=== PATIENT | male | born 1970 | race Caucasian/White ===

== ENCOUNTER 2016-10-10 09:01 | Emergency (ER) | payer OTHER ==
[~2016-10-10] VITALS: Ht 167.6 cm; Wt 60.0 kg
[~2016-10-10 09:01] MED LIST: CYCL5TAB PO
[2016-10-10 09:08] VITALS: BP 191/109; PULSE 86; RESP 17; TEMP 98.4; O2SAT 97
[2016-10-10] MEDS ORDERED: methylPREDNISolone SOD SUCC 125 MG/2 ML VIAL IVP ONE (09:45)
[2016-10-10] MEDS ORDERED: SODIUM CHLORIDE 0.9% FLUSH 5 ML FLUSH IVF PRN (09:45)
--- NOTE | 2016-10-10 09:49 | PD ---
HPI . Cough and cold for the last 3 weeks Chief Complaint: Cold / Flu Symptoms Time Seen by Provider: 09:36 Travel History International Travel<30 days: No Contact w/Intl Traveler<30days: No Traveled to known affect area: No History of Present Illness HPI Patient presents a with a chief complaint of cough and cold symptoms for the last 3 weeks. He reports subjective fevers and chills. He has cough. He has vomiting and diarrhea. He has headache. He reports phlegm production. He has shortness of breath, myalgias, weakness and poor appetite. He reports taking several glxo-vaz-udgpsbi medications including NyQuil, DayQuil, Robitussin, Mucinex, aspirin, Tylenol, Advil and Aleve without relief. PFSH Past Medical History Diminished Hearing: No Past Surgical History Body Medical Devices: LOWER JAW SURGERY, METAL USED TO REPAIR THE LOWER JAW Oral Surgery: Yes (JAW SURGERY) Social History Alcohol Use: Yes Tobacco Use: Yes Allergies-Medications (Allergen,Severity, Reaction): Coded Allergies: Naprosyn (Verified Allergy, Intermediate, ITCHING, 10/10/16) Bumble Bee (Verified Allergy, Mild, 10/10/16) Penicillin (Verified Allergy, Mild, RASH/SWELLING, 10/10/16) TOLD THAT A CHILD. Uncoded Allergies: PICKLES (Allergy, Mild, 03/11/06) Reported Meds & Prescriptions Reported Meds & Active Scripts Active Promethazine-Codeine Liq 6.25-10 Mg/5 Ml Syrp 10 Ml PO Q6H PRN Guaifenesin ER 12 HR (Guaifenesin) 1,200 Mg Lance 1,200 Mg PO BID PRN Ibuprofen 800 Mg Tab 800 Mg PO Q8H PRN Ventolin Hfa 18 GM Inh (Albuterol Sulfate) 90 Mcg/Act Aer 2 Puff INH Q4-6H PRN Prednisone (48) 10 mg tab Dose Pack (Prednisone) 10 Mg Dspk 10 Mg PO DIRECTED Reported Flexeril (Cyclobenzaprine HCl) 5 Mg Tab 5 Mg PO Q8HPRN Review of Systems Except as stated in HPI: all other systems reviewed are Neg General / Constitutional: Positive: Fever, Chills HENT: Positive: Headaches, Sore Throat, Rhinorrhea, Congestion Cardiovascular: Positive: Chest Pain or Discomfort Respiratory: Positive: Cough, Shortness of Breath Gastrointestinal: Positive: Nausea, Vomiting, Diarrhea, Abdominal Pain Genitourinary: No: Urgency, Frequency, Dysuria Musculoskeletal: Positive: Myalgias, Arthralgias, Weakness Neurologic: Positive: Weakness Physical Exam Narrative GENERAL: Healthy-appearing young man who does have a persistent cough. SKIN: Warm and dry. HEAD: Atraumatic. Normocephalic. EYES: Pupils equal and round. ENT: No nasal bleeding or discharge. Mucous membranes pink and moist. Oropharynx has no erythema. No tonsillar enlargement or exudate. No edema. NECK: Trachea midline. Neck is supple with no cervical lymphadenopathy. CARDIOVASCULAR: Regular rate and rhythm. Heart sounds are normal. RESPIRATORY: No accessory muscle use. Lungs are clear with good air movement throughout. Diffuse chest wall tenderness. GASTROINTESTINAL: Abdomen soft, non-tender, nondistended. MUSCULOSKELETAL: No obvious deformities. No edema. NEUROLOGICAL: Awake and alert. No obvious cranial nerve deficits. Motor grossly within normal limits. Normal speech. PSYCHIATRIC: Appropriate mood and affect; insight and judgment normal. Data Data Last Documented VS Vital Signs Date Time Temp Pulse Resp B/P Pulse Ox O2 Delivery O2 Flow Rate FiO2 10/10/16 10:15 60 18 163/98 97 Room Air 10/10/16 09:08 98.4 Orders Complete Blood Count With Diff (10/10/16 09:43) Basic Metabolic Panel (Bmp) (10/10/16 09:43) B-Type Natriuretic Peptide (10/10/16 09:43) Ckmb (Isoenzyme) Profile (10/10/16 09:43) Troponin I (10/10/16 09:43) Influenzae A/B Antigen (10/10/16 09:43) Blood Culture (10/10/16 09:43) Iv Access Insert/Monitor (10/10/16 09:43) Electrocardiogram (10/10/16 09:43) Ecg Monitoring (10/10/16 09:43) Oximetry (10/10/16 09:43) Chest, Single Ap (10/10/16 09:43) Sodium Chloride 0.9% Flush (Ns Flush) (10/10/16 09:45) Methylprednisolone So Succ Inj (Solumedr (10/10/16 09:45) Albuterol-Ipratropium Neb (Duoneb Neb) (10/10/16 09:45) CKMB (10/10/16 10:00) CKMB% (10/10/16 10:00) Labs Laboratory Tests Test 10/10/16 10:00 White Blood Count 12.4 TH/MM3 Red Blood Count 5.08 MIL/MM3 Hemoglobin 16.9 GM/DL Hematocrit 49.4 % Mean Corpuscular Volume 97.3 FL Mean Corpuscular Hemoglobin 33.4 PG Mean Corpuscular Hemoglobin 34.3 % Concent Red Cell Distribution Width 14.2 % Platelet Count 239 TH/MM3 Mean Platelet Volume 8.0 FL Neutrophils (%) (Auto) 68.4 % Lymphocytes (%) (Auto) 23.4 % Monocytes (%) (Auto) 6.9 % Eosinophils (%) (Auto) 0.8 % Basophils (%) (Auto) 0.5 % Neutrophils # (Auto) 8.5 TH/MM3 Lymphocytes # (Auto) 2.9 TH/MM3 Monocytes # (Auto) 0.9 TH/MM3 Eosinophils # (Auto) 0.1 TH/MM3 Basophils # (Auto) 0.1 TH/MM3 CBC Comment DIFF FINAL Differential Comment Sodium Level 138 MEQ/L Potassium Level 3.8 MEQ/L Chloride Level 106 MEQ/L Carbon Dioxide Level 23.2 MEQ/L Anion Gap 9 MEQ/L Blood Urea Nitrogen 8 MG/DL Creatinine 0.76 MG/DL Estimat Glomerular Filtration 110 ML/MIN Rate Random Glucose 90 MG/DL Calcium Level 8.2 MG/DL Total Creatine Kinase 103 U/L Creatine Kinase MB 0.7 NG/ML Troponin I LESS THAN 0.02 NG/ML B-Type Natriuretic Peptide 38 PG/ML MDM Medical Decision Making Medical Screen Exam Complete: Yes Emergency Medical Condition: Yes Medical Record Reviewed: Yes (the patient has been seen here on numerous previous occasions with various injuries and illnesses. However, he has no chronic medical problems) Interpretation(s) EKG shows a normal sinus rhythm with no acute ischemic changes. This is a normal EKG. He has no old EKGs for comparison. Differential Diagnosis Differential diagnosis of dyspnea includes but is not limited to congestive heart failure, pneumonia, wheezing, pneumothorax, pulmonary embolism Narrative Course Patient presents for evaluation and treatment of a 3 week history of cough and cold symptoms. I suspect viral bronchitis. Flu screen is negative. CBC & BMP Diagram 10/10/16 10:00 The chest x-ray to my interpretation is negative for infiltrate. Cardiac enzymes are negative. BNP is 38. His symptoms are most consistent with viral or allergic bronchitis. Last Impressions Chest X-Ray 10/10/16 0943 Signed Impressions: Service Date/Time: Monday, October 10, 2016 09:41 - CONCLUSION: No acute disease. Inder Mitchell MD FACR Diagnosis Primary Impression: Bronchitis Patient Instructions: Acute Bronchitis (ED), General Instructions Med/Other Pt SpecificInfo: Prescription(s) given Scripts Promethazine-Codeine Liq 6.25-10 Mg/5 Ml Syrp10 Ml PO Q6H PRN (cough) #180 ML Ref 0 Prov:Elizabeth Mejia MD 10/10/16 Guaifenesin ER 12 HR 1,200 Mg Taber1,200 Mg PO BID PRN (chest congestion) #30 TAB Ref 0 Prov:Elizabeth Mejia MD 10/10/16 Ibuprofen 800 Mg [id number] Mg PO Q8H PRN (body aches) #30 TAB Ref 0 Prov:Elizabeth Mejia MD 10/10/16 Albuterol 18 GM Inh (Ventolin Hfa 18 GM Inh)90 Mcg/Act Aer2 Puff INH Q4-6H PRN ( SHORTNESS OF BREATH) #1 INHALER Ref 0 Prov:Elizabeth Mejia MD 10/10/16 Prednisone (48) 10 mg tab Dose Pack 10 Mg Dspk10 Mg PO DIRECTED #1 DSPK Ref 0 Prov:Elizabeth Mejia MD 10/10/16 Disposition: 01 DISCHARGE HOME Condition: Stable Elizabeth Mejia MD Oct 10, 2016 09:48
[2016-10-10 10:15] VITALS: BP 163/98; PULSE 60; RESP 18; O2SAT 97
[2016-10-10 10:24] LABS: AUTOMATED NEUTROPHIL # 8.5 TH/MM3 (1.8-7.7); BASOPHIL # 0.1 TH/MM3 (0-0.2); BASOPHIL % 0.5 % (0.0-2.0); EOSINOPHIL # 0.1 TH/MM3 (0-0.4); EOSINOPHIL % 0.8 % (0.0-4.0); HEMATOCRIT 49.4 % (39.0-51.0); HEMO FLAGS DIFF FINAL; LYMPH % 23.4 % (9.0-44.0); LYMPHOCYTE # 2.9 TH/MM3 (1.0-4.8); MEAN CELL VOLUME 97.3 FL (80.0-100.0); MEAN CORPUSCULAR HEMOGLOBIN 33.4 PG (27.0-34.0); MEAN CORPUSCULAR HGB CONC 34.3 % (32.0-36.0); MONO % 6.9 % (0.0-8.0); NEUT % 68.4 % (16.0-70.0); PLATELET COUNT 239 TH/MM3 (150-450); RED BLOOD COUNT 5.08 MIL/MM3 (4.50-5.90); RED CELL DISTRIBUTION WIDTH 14.2 % (11.6-17.2); WHITE BLOOD COUNT 12.4 TH/MM3 (4.0-11.0)
[2016-10-10 10:38] LABS: ANION GAP 9 MEQ/L (5-15); BICARBONATE 23.2 MEQ/L (21.0-32.0); BLOOD UREA NITROGEN 8 MG/DL (7-18); CHLORIDE 106 MEQ/L (98-107); GLOMERULAR FILTRATION RATE 110 ML/MIN (>89); POTASSIUM 3.8 MEQ/L (3.5-5.1); SODIUM (NA) 138 MEQ/L (136-145)
[2016-10-10 10:41] LABS: CREATINE KINASE 103 U/L (39-308)
[2016-10-10 11:05] LABS: CKMB 0.7 NG/ML (0.5-3.6)
[2016-10-10] MEDS: RESP: ALBUTEROL 2.5 MG/IPRATROPIUM 0.5 MG NEB (SCH) INH ×2 (11:12→11:13)
[2016-10-10] MEDS ORDERED: PRED10PA2 PO (11:56)
[2016-10-10] MEDS ORDERED: IBUP800T23 PO (11:56)
[2016-10-10] MEDS ORDERED: VENTAER INH (11:56)
[2016-10-10] MEDS ORDERED: GUAI10TA PO (11:56)
[2016-10-10] MEDS ORDERED: PROM6.256 PO (11:56)
--- NOTE | 2016-10-10 12:13 | RADRPT ---
EXAM DATE/TIME: 10/10/2016 09:41 [facility] COMPARISON: No previous studies available for comparison. INDICATIONS : Short of breath, coughing for 2 to 3 weeks, has coughing spells in the middle of the night and then g ets a stabbing pain in the left chest MEDICAL HISTORY : None. SURGICAL HISTORY : None. ENCOUNTER: Initial ACUITY: 3 weeks PAIN SCORE: 5/10 LOCATION: Bilateral chest FINDINGS: A single view of the chest demonstrates the lungs to be symmetrically aerated without evidence of mas s, infiltrate or effusion. The cardiomediastinal contours are unremarkable. Osseous structures are intact. CONCLUSION: No acute disease. Inder Mitchell MD FACR on October 10, 2016 at 12:11 Board Certified Radiologist. This report was verified electronically.
[2016-10-10 13:12] VITALS: BP 161/89; PULSE 78; RESP 22; O2SAT 97
--- NOTE | 2016-10-11 08:16 | EKG ---
Date Performed: 10/10/2016 Time Performed: 09:56:56 PTAGE: 46 years EKG: Sinus rhythm NORMAL ECG NO PREVIOUS TRACING DOCTOR: Mamadou Chin Interpretating Date/Time 10/11/2016 08:13:36
== END 2016-10-10 13:15 | disposition home or self-care (01) ==
LOC: NEPA 09:01
DX: J40 Bronchitis, not specified as acute or chronic (principal)
CPT/HCPCS: 71010; 80048; 82550; 82552; 83880; 84484; 85025; 87040; 87804; 93005; 94640; 94664; 96374; 99284; J2930

== ENCOUNTER 2017-07-13 16:55 | Emergency (ER) | payer SELFPAY ==
[~2017-07-13] VITALS: Ht 167.6 cm; Wt 59.0 kg
[~2017-07-13 16:55] MED LIST changes: +GUAI10TA PO; +IBUP1TAB7 PO; +PRED10PA2 PO; +PROM6.256 PO; +VENTAER INH
[2017-07-13 16:56] VITALS: BP 158/84; PULSE 86; RESP 18; TEMP 98.1; O2SAT 99
--- NOTE | 2017-07-13 17:45 | RADRPT ---
EXAM DATE/TIME: 07/13/2017 17:20 [facility] COMPARISON: CHEST SINGLE AP, October 10, 2016, 9:41. INDICATIONS : Short of breath and cough. MEDICAL HISTORY : None. SURGICAL HISTORY : None. ENCOUNTER: Initial ACUITY: 4 - 6 days PAIN SCORE: 3/10 LOCATION: Bilateral chest Center FINDINGS: The heart is normal in size. The lungs are clear. The visualized bony structures are grossly intact. The exam is stable compared to previous. CONCLUSION: 1. No acute findings identified. Garrison Mitchell MD on July 13, 2017 at 17:43 Board Certified Radiologist. This report was verified electronically.
[2017-07-13] MEDS ORDERED: AZITHROMYCIN 250 MG TAB PO ONE (18:15)
[2017-07-13] MEDS ORDERED: ALBUTEROL SULFATE 90 MCG/ACT HFA 8 GM INHALER INH ONE (18:15)
[2017-07-13] MEDS ORDERED: predniSONE 20 MG TAB PO ONE (18:15)
[2017-07-13] MEDS ORDERED: PRED20 PO (18:19)
[2017-07-13] MEDS ORDERED: AZIT500T2 PO (18:19)
[2017-07-13] MEDS ORDERED: BENZ100 PO (18:19)
[2017-07-13] MEDS ORDERED: ALBUAER3 INH (18:19)
--- NOTE | 2017-07-13 18:20 | PD ---
HPI Chief Complaint: Respiratory Symptoms Time Seen by Provider: 18:00 Travel History International Travel<30 days: No Contact w/Intl Traveler<30days: No Traveled to known affect area: No History of Present Illness HPI Patient is a 46-year-old male who presents to emergency room for evaluation of URI. Patient reports that for the past week, he has had a runny nose, reports increased nasal congestion, reports a productive cough with thick yellow to greenish sputum. Patient reports no fevers, reports that he is having chills. Patient reports that he does feel achy all over. Patient reports no sick contacts at home, denies any recent travels or trips. Patient with no chest pain or shortness of breath at this time, he is a smoker, reports that he is a one pack per day smoker, he has decreased his smoking over the past week due to his symptoms. Patient did not have a flu vaccine this year. PFSH Past Medical History Medical History: Denies Significant Hx Diminished Hearing: No Past Surgical History Body Medical Devices: LOWER JAW SURGERY, METAL USED TO REPAIR THE LOWER JAW Oral Surgery: Yes (JAW SURGERY) Other Surgery: Yes (BILATERAL GREAT TOE SURGERY) Social History Alcohol Use: Yes Tobacco Use: Yes (1 PPD) Substance Use: Yes (MARIJUANA OCCASIONALLY ) Allergies-Medications (Allergen,Severity, Reaction): Coded Allergies: naproxen (Unverified Allergy, Intermediate, ITCHING, 07/13/17) bee venom protein (honey bee) (Unverified Allergy, Mild, 07/13/17) penicillin G (Unverified Allergy, Mild, RASH/SWELLING, 07/13/17) TOLD THAT A CHILD. Uncoded Allergies: PICKLES (Allergy, Mild, 03/11/06) Reported Meds & Prescriptions Reported Meds & Active Scripts Active No Active Prescriptions or Reported Medications Review of Systems General / Constitutional: Positive: Chills, No: Fever Eyes: No: Visual changes HENT: No: Headaches Cardiovascular: No: Chest Pain or Discomfort Respiratory: Positive: Cough, No: Shortness of Breath Gastrointestinal: No: Abdominal Pain Genitourinary: No: Dysuria Musculoskeletal: Positive: Myalgias, No: Pain Skin: No Rash Neurologic: No: Weakness Psychiatric: No: Depression Endocrine: No: Polydipsia Hematologic/Lymphatic: No: Easy Bruising Physical Exam Narrative GENERAL: NAD, nontoxic SKIN: Focused skin assessment warm/dry. HEAD: Atraumatic. Normocephalic. EYES: Pupils equal and round. No scleral icterus. No injection or drainage. ENT: No nasal bleeding or discharge. Mucous membranes pink and moist. NECK: Trachea midline. No JVD. CARDIOVASCULAR: Regular rate and rhythm. No murmur appreciated. RESPIRATORY: No accessory muscle use. Clear to auscultation. Breath sounds equal bilaterally. GASTROINTESTINAL: Abdomen soft, non-tender, nondistended. Hepatic and splenic margins not palpable. MUSCULOSKELETAL: No obvious deformities. No clubbing. No cyanosis. No edema. NEUROLOGICAL: Awake and alert. No obvious cranial nerve deficits. Motor grossly within normal limits. Normal speech. PSYCHIATRIC: Appropriate mood and affect; insight and judgment normal. Data Data Last Documented VS Vital Signs Date Time Temp Pulse Resp B/P (MAP) Pulse Ox O2 Delivery O2 Flow Rate FiO2 07/13/17 16:56 98.1 86 18 158/84 (108) 99 Room Air Orders Orders Chest, Single Ap (07/13/17 ) Influenzae A/B Antigen (07/13/17 17:11) [facility] Medical Decision Making Medical Screen Exam Complete: Yes Emergency Medical Condition: Yes Medical Record Reviewed: Yes Interpretation(s) Vital Signs Date Time Temp Pulse Resp B/P (MAP) Pulse Ox O2 Delivery O2 Flow Rate FiO2 07/13/17 16:56 98.1 86 18 158/84 (108) 99 Room Air Differential Diagnosis Pneumonia, influenza, bronchitis, viral syndrome Narrative Course Patient is a 46 year old male presents to emergency room with complaints of one week of myalgias, sinus congestion, postnasal drip, productive cough. Vital Signs Date Time Temp Pulse Resp B/P (MAP) Pulse Ox O2 Delivery O2 Flow Rate FiO2 07/13/17 16:56 98.1 86 18 158/84 (108) 99 Room Air Patient is afebrile emergency room, patient nontoxic appearing. Vital signs are reviewed and are stable. Last Impressions Chest X-Ray 07/13/17 0000 Signed Impressions: Service Date/Time: , July 13, 2017 17:20 - CONCLUSION: 1. No acute findings identified. Garrison Mitchell MD X-ray of the chest with no acute findings suggestive of pneumonia. Microbiology Date/Time Source Procedure Growth Status 07/13/17 17:17 Nasal Washing Influenza Types A,B Antigen (CHARLES) - Final NEGATIVE FOR FLU A AND B ANTIGEN.... Complete Influenza is negative. Patient with most likely acute bronchitis, plan to start patient on steroids, will start him on azithromycin. Discussed need for him to stop smoking completely. Patient will follow-up with his primary care doctor and return to emergency room as needed. Signs and symptoms of when to return to the emergency room was reviewed patient in detail. Diagnosis Primary Impression: Acute bronchitis Qualified Codes: J20.9 - Acute bronchitis, unspecified Additional Impression: Smoking addiction Patient Instructions: General Instructions Departure Forms: Tests/Procedures, Work Release Enter return to work date: Jul 17, 2017 Additional Instructions: Please take all medications as prescribed Please follow up with your primary care doctor in 2-3 days Return to the ER if symptoms worsen or progress Return to the ER as needed Please stop smoking cigarettes Med/Other Pt SpecificInfo: Prescription(s) given Scripts Benzonatate (Tessalon Perles) 100 Mg Cap 200 MG PO TID Y for COUGH for 7 Days, CAP 0 Refills Prov: Loly Smith DO 07/13/17 Albuterol 8.5 GM Inh (Proair Hfa 8.5 GM Inh) 90 Mcg/Act Aer 2 PUFF INH Q4-6H Y for SHORTNESS OF BREATH, #1 INHALER 0 Refills 108 mcg/actuation Prov: Loly Smith DO 07/13/17 Prednisone (Prednisone) 20 Mg Tab 20 MG PO BID for 5 Days, #10 TAB 0 Refills Prov: Loly Smith DO 07/13/17 Azithromycin (Azithromycin) 500 Mg Tab 500 MG PO DAILY for Infection, #5 TAB 0 Refills Prov: Loly Smith DO 07/13/17 Disposition: 01 DISCHARGE HOME Condition: Stable Loly Smith DO Jul 13, 2017 18:20
== END 2017-07-13 19:02 | disposition home or self-care (01) ==
LOC: NEPD 16:55
DX: J20.9 Acute bronchitis, unspecified (principal)
CPT/HCPCS: 71010; 87804; 99284; J7512

== ENCOUNTER 2017-11-06 12:14 | Emergency (ER) | payer SELFPAY ==
[~2017-11-06] VITALS: Ht 167.6 cm; Wt 63.6 kg
[~2017-11-06 12:14] MED LIST changes: +ALBUAER3 INH; +AZIT500T2 PO; +BENZ100 PO; -CYCL5TAB PO; -GUAI10TA PO; -IBUP1TAB7 PO; -PRED10PA2 PO; +PRED20 PO; -PROM6.256 PO; -VENTAER INH
[2017-11-06 12:34] VITALS: BP 142/79; PULSE 68; RESP 18; TEMP 97.2; O2SAT 100
[2017-11-06 14:21] LABS: AUTOMATED NEUTROPHIL # 3.9 TH/MM3 (1.8-7.7); BASOPHIL % 0.5 % (0.0-2.0); EOSINOPHIL # 0.1 TH/MM3 (0-0.4); EOSINOPHIL % 1.5 % (0.0-4.0); HEMATOCRIT 41.9 % (39.0-51.0); HEMOGLOBIN 14.5 GM/DL (13.0-17.0); LYMPH % 36.7 % (9.0-44.0); LYMPHOCYTE # 2.7 TH/MM3 (1.0-4.8); MEAN CELL VOLUME 95.7 FL (80.0-100.0); MEAN CORPUSCULAR HEMOGLOBIN 33.2 PG (27.0-34.0); MEAN CORPUSCULAR HGB CONC 34.7 % (32.0-36.0); MONO % 8.6 % (0.0-8.0); MONOCYTE # 0.6 TH/MM3 (0-0.9); NEUT % 52.7 % (16.0-70.0); PLATELET COUNT 247 TH/MM3 (150-450); RED BLOOD COUNT 4.38 MIL/MM3 (4.50-5.90); RED CELL DISTRIBUTION WIDTH 13.8 % (11.6-17.2); WHITE BLOOD COUNT 7.3 TH/MM3 (4.0-11.0)
[2017-11-06 14:28] LABS: PROTHROMBIN TIME - PATIENT 10.4 SEC (9.8-11.6)
[2017-11-06 14:49] LABS: AST (GOT) 19 U/L (15-37); BICARBONATE 29.3 MEQ/L (21.0-32.0); BLOOD UREA NITROGEN 19 MG/DL (7-18); CALCIUM 9.4 MG/DL (8.5-10.1); CHLORIDE 107 MEQ/L (98-107); CREATININE 0.65 MG/DL (0.60-1.30); GLOMERULAR FILTRATION RATE 132 ML/MIN (>89); GLUCOSE,RANDOM 72 MG/DL (74-106); SODIUM (NA) 142 MEQ/L (136-145)
[2017-11-06 14:50] LABS: ALT (GPT) 23 U/L (12-78)
[2017-11-06 14:52] LABS: ALKALINE PHOSPHATASE 84 U/L (45-117); TOTAL BILIRUBIN ADULT 0.3 MG/DL (0.2-1.0); TOTAL PROTEIN 7.4 GM/DL (6.4-8.2)
--- NOTE | 2017-11-06 20:13 | PD ---
Physical Exam Date Seen by Provider: Nov 06, 2017 Time Seen by Provider: 14:50 Narrative 47 year old male presents to the emergency department for evaluation of bilateral calf pain, worse on the left side. He states his leg and foot are turning pale and cold. He states the pain is worse with ambulation. Current pain is 6/10. Data Data Last Documented VS Vital Signs Date Time Temp Pulse Resp B/P (MAP) Pulse Ox O2 Delivery O2 Flow Rate FiO2 11/06/17 12:34 97.2 68 18 142/79 (100) 100 Orders Orders Complete Blood Count With Diff (11/06/17 12:36) Comprehensive Metabolic Panel (11/06/17 12:36) Prothrombin Time / Inr (Pt) (11/06/17 12:36) Act Partial Throm Time (Ptt) (11/06/17 12:36) Creatine Kinase (Cpk) (11/06/17 12:37) Labs Laboratory Tests Test 11/06/17 13:35 11/06/17 13:50 White Blood Count 7.3 TH/MM3 Red Blood Count 4.38 MIL/MM3 Hemoglobin 14.5 GM/DL Hematocrit 41.9 % Mean Corpuscular Volume 95.7 FL Mean Corpuscular Hemoglobin 33.2 PG Mean Corpuscular Hemoglobin Concent 34.7 % Red Cell Distribution Width 13.8 % Platelet Count 247 TH/MM3 Mean Platelet Volume 8.0 FL Neutrophils (%) (Auto) 52.7 % Lymphocytes (%) (Auto) 36.7 % Monocytes (%) (Auto) 8.6 % Eosinophils (%) (Auto) 1.5 % Basophils (%) (Auto) 0.5 % Neutrophils # (Auto) 3.9 TH/MM3 Lymphocytes # (Auto) 2.7 TH/MM3 Monocytes # (Auto) 0.6 TH/MM3 Eosinophils # (Auto) 0.1 TH/MM3 Basophils # (Auto) 0.0 TH/MM3 CBC Comment DIFF FINAL Differential Comment Prothrombin Time 10.4 SEC Prothromb Time International Ratio 1.0 RATIO Activated Partial Thromboplast Time 25.9 SEC Blood Urea Nitrogen 19 MG/DL Creatinine 0.65 MG/DL Random Glucose 72 MG/DL Total Protein 7.4 GM/DL Albumin 4.0 GM/DL Calcium Level 9.4 MG/DL Alkaline Phosphatase 84 U/L Aspartate Amino Transf (AST/SGOT) 19 U/L Alanine Aminotransferase (ALT/SGPT) 23 U/L Total Bilirubin 0.3 MG/DL Sodium Level 142 MEQ/L Potassium Level 4.5 MEQ/L Chloride Level 107 MEQ/L Carbon Dioxide Level 29.3 MEQ/L Anion Gap 6 MEQ/L Estimat Glomerular Filtration Rate 132 ML/MIN [facility] Supervised Visit with SHANNON: No Narrative Course 47 year old male presents to the emergency department for evaluation of bilateral calf pain. Patient is initially seen in triage and work up is initiated. Patient left AMA before he could be moved to a medical bed. Diagnosis Primary Impression: Left against medical advice Disposition: 07 AGAINST MEDICAL ADVICE Leydi Del Cid Nov 06, 2017 20:12
== END 2017-11-06 14:50 | disposition home or self-care (01) ==
LOC: NED 12:14
DX: M79.662 Pain in left lower leg (principal); M79.661 Pain in right lower leg; Z53.20 Procedure and treatment not carried out because of patient's decision for unspecified reasons
CPT/HCPCS: 80053; 82550; 85025; 85610; 85730; 99283